=== PATIENT | female | born 1995 | race Caucasian/White ===

== ENCOUNTER 2020-04-09 10:16 | Outpatient (CLI) | payer OTHER ==
[2020-04-09] MEDS ORDERED: GADOTERATE 10 MMOL/20 ML VIAL ONE (12:08)
== END 2020-04-09 23:59 | disposition home or self-care (01) ==
LOC: CFH 10:16
PROVIDERS: ATTEND Surgery
DX: Z80.3 Family history of malignant neoplasm of breast (principal)
CPT/HCPCS: 77049; A9575; C8908